=== PATIENT | male | born 1985 | race Caucasian/White ===

== ENCOUNTER 2017-04-12 07:23 | Emergency (ER) | payer OTHER ==
[2017-04-12 07:29] VITALS: BP 164/99; PULSE 88; RESP 20; TEMP 97
[2017-04-12] MEDS ORDERED: KETOROLAC 60 MG/2 ML VIAL IM STA (08:19)
[2017-04-12] MEDS ORDERED: methylPREDNISolone SOD SUCCI 125 MG/2 ML VIAL IM ONE (08:20)
--- NOTE | 2017-04-12 08:22 | ED ---
Back Pain HPI - General Chief Complaint: Back Pain/Injury Stated Complaint: back pain Time Seen by Provider: 04/12/17 08:08 Source: patient, RN notes reviewed Limitations: no limitations - History of Present Illness Initial Comments: Patient's 31-year-old male presents emergency room for low back pain. Patient states he has a history of herniated disks in his lumbar spine. Patient states he was lifting up a heavy object yesterday and felt a sharp burning pain in his lower back. Patient states the pain is radiating down his left leg. Patient denies fecal or urinary incontinence. Patient denies saddle anesthesia. Patient states he is having pain every time he stands up. Patient states he has been taking ibuprofen with no relief of symptoms. Patient states he couldn' t go into work today secondary to pain. Patient denies feeling a pop or snap when the incident happened. Patient denies any recent fall or trauma to his back. Patient denies any other injuries during incident. - Related Data Home Medications Medication Instructions Recorded Confirmed Ibuprofen [Motrin] 800 mg PO Q8H PRN 04/12/17 04/12/17 Previous Rx's Medication Instructions Recorded HYDROcodone/APAP 5-325MG [[place] 1 tab PO Q6HR PRN #12 tab 04/12/17 5-325] predniSONE 50 mg PO DAILY #5 tab 04/12/17 Allergies Allergy/AdvReac Type Severity Reaction Status Date / Time No Known Allergies Allergy Verified 04/12/17 07:58 Review of Systems ROS Statement: Those systems with pertinent positive or pertinent negative responses have been documented in the HPI. ROS Other: All systems not noted in ROS Statement are negative. Past Medical History Additional Past Medical History / Comment(s): fx of back History of Any Multi-Drug Resistant Organisms: None Reported Past Surgical History: No Surgical Hx Reported Additional Past Surgical History / Comment(s): epidural injections Past Psychological History: No Psychological Hx Reported Smoking Status: Never smoker Past Alcohol Use History: Occasional Past Drug Use History: Marijuana General Exam - General Exam Comments Initial Comments: Sitting in exam room, no acute distress. Limitations: no limitations General appearance: alert, in no apparent distress Head exam: Present: atraumatic, normocephalic, normal inspection Eye exam: Present: normal appearance ENT exam: Present: normal exam Neck exam: Present: normal inspection Respiratory exam: Absent: respiratory distress Extremities exam: Present: normal inspection Back exam: Present: normal inspection, vertebral tenderness (Lumbosacral spine) . Absent: CVA tenderness (R), CVA tenderness (L) Neurological exam: Present: alert, oriented X3, CN II-XII intact Psychiatric exam: Present: normal affect, normal mood Skin exam: Present: warm, dry, intact, normal color. Absent: rash Course Vital Signs 04/12/17 07:27 Temperature 97.0 F L Pulse Rate 88 Respiratory 20 Rate Blood Pressure 164/99 O2 Sat by Pulse 98 Oximetry Medical Decision Making - Medical Decision Making Patient is a 31-year-old male presents to the emergency room for evaluation of low back pain. X-ray showed no acute findings. Results discussed with patient. Patient initially offered pain medications and stated that he drove here. Patient given Toradol and Solu-Medrol. Patient states his symptoms have not improved. Patient's did end up showing up during the visit. Patient requested stronger pain medication. Patient was offered morphine and [place] and refused. Patient also requested an MRI. I did discuss with patient that we do not do MRIs in the emergency room and that he would need to follow-up with his primary care provider. Patient was unhappy with this information and left before given discharged instructions. - Radiology Data Radiology results: report reviewed, image reviewed Disposition Clinical Impression: Low back strain Disposition: HOME SELF-CARE Condition: Good Instructions: Acute Low Back Pain (ED) Additional Instructions: Take medications as needed. Ice on and off for 10-15 minutes at a time. Please follow up with primary care provider in 24-48 hours for reevaluation. If any new symptom arises or symptoms worsen, return to ER as soon as possible. Prescriptions: HYDROcodone/APAP 5-325MG [[place] 5-325] 1 tab PO Q6HR PRN #12 tab PRN Reason: Pain predniSONE 50 mg PO DAILY #5 tab Referrals: Raulito Lopez MD [Primary Care Provider] - 1-2 days Time of Disposition: 09:13
--- NOTE | 2017-04-12 08:53 | XR ---
Lumbosacral spine HISTORY: Low back pain 5 views of the lumbosacral spine. Correlation to MRI lumbar spine 06/20/2010 Loss of disc height is present L4-5 and L5-S1. Lumbar vertebral bodies show preserved height and alig nment. There is mild multilevel spondylosis. No spondylolysis. Lumbar vertebral bodies show preserved height and bone mineralization. IMPRESSION: Degenerative disc disease. No fracture or subluxation.
== END 2017-04-12 09:30 | disposition home or self-care (01) ==
LOC: EC 07:23
DX: S39.012A Strain of muscle, fascia and tendon of lower back, initial encounter (principal); Z87.39 Personal history of other diseases of the musculoskeletal system and connective tissue; X50.0XXA Overexertion from strenuous movement or load, initial encounter
CPT/HCPCS: 72110; 99283; 96372 ×2; J2930; J1885

== ENCOUNTER 2019-08-02 15:59 | Observation (INO) | payer OTHER, BC ==
[2019-08-02] MEDS ORDERED: NITROGLYCERIN SL TABS 0.4 MG TAB SUBLINGUAL STA (16:45)
[2019-08-02] MEDS ORDERED: ASPIRIN 81 MG PO STA (16:45)
--- NOTE | 2019-08-02 16:49 | ED ---
Chest Pain HPI <Arsenio Laughlin - Last Filed: 08/02/19 18:46> - General Source: patient Mode of arrival: ambulatory Limitations: no limitations <Kalpesh Box - Last Filed: 08/02/19 18:55> - General Chief Complaint: Chest Pain Stated Complaint: Chest Pain Time Seen by Provider: 08/02/19 16:33 - History of Present Illness Initial Comments: Patient is a 33-year-old male presenting to emergency Department with a chief complaint of chest pain. Patient reports the pain began yesterday morning and is not resolved. Patient reports the pain is intermittent in nature and is substernal. Patient denies any radiation to the arm or chin. Patient denies any shortness of breath. Patient denies dyspnea on exertion. Patient reports the pain is reproducible with palpation. Patient denies any episodes of diaphoresis, nausea or vomiting. Patient denies a headache, lightheaded, dizziness or blurry vision. Patient denies hypertension, hypercholesterolemia, prior cardiac history or family history of cardiac disease. Patient denies any abdominal or back pain. Patient denies taking medication to alleviate the symptoms. (Kalpesh Box) - Related Data Home Medications Medication Instructions Recorded Confirmed Ibuprofen [Motrin] 800 mg PO Q8H PRN 04/12/17 08/02/19 Allergies Allergy/AdvReac Type Severity Reaction Status Date / Time No Known Allergies Allergy Verified 08/02/19 16:58 Review of Systems ROS Other: All systems not noted in ROS Statement are negative. <Arsenio Laughlin - Last Filed: 08/02/19 18:46> ROS Other: All systems not noted in ROS Statement are negative. <Kalpesh Box - Last Filed: 08/02/19 18:55> ROS Statement: Those systems with pertinent positive or pertinent negative responses have been documented in the HPI. EKG Findings - EKG Comments: EKG Findings:: Normal sinus rhythm, no ST changes. Ventricular rate 72, ND interval 140, QRS duration 94, QT/QTC 388/424 <Kalpesh Box - Last Filed: 08/02/19 18:55> Past Medical History Past Medical History: No Reported History Additional Past Medical History / Comment(s): fx of back History of Any Multi-Drug Resistant Organisms: None Reported Past Surgical History: No Surgical Hx Reported Additional Past Surgical History / Comment(s): epidural injections Past Psychological History: No Psychological Hx Reported Smoking Status: Never smoker Past Alcohol Use History: Occasional Past Drug Use History: Marijuana <Kalpesh Box - Last Filed: 08/02/19 18:55> General Exam Limitations: no limitations General appearance: alert, in no apparent distress Head exam: Present: atraumatic, normocephalic, normal inspection Eye exam: Present: normal appearance, PERRL, EOMI Pupils: Present: normal accommodation ENT exam: Present: normal exam, normal oropharynx, mucous membranes moist, TM's normal bilaterally, normal external ear exam Neck exam: Present: normal inspection, full ROM Respiratory exam: Present: normal lung sounds bilaterally, chest wall tenderness (Sternal midsternal tenderness with palpation) Cardiovascular Exam: Present: regular rate, normal rhythm, normal heart sounds Extremities exam: Present: normal inspection, full ROM, normal capillary refill, other (+2 ulnar and radial pulses bilaterally.) Back exam: Present: normal inspection, full ROM Neurological exam: Present: alert, oriented X3 Psychiatric exam: Present: normal affect, normal mood Skin exam: Present: warm, intact, normal color <Kalpesh Box - Last Filed: 08/02/19 18:55> Course <Arsenio Laughlin - Last Filed: 08/02/19 18:46> Vital Signs 08/02/19 08/02/19 08/02/19 16:02 17:10 18:26 Temperature 98.4 F Pulse Rate 87 82 86 Respiratory 18 18 18 Rate Blood Pressure 147/95 163/86 128/86 O2 Sat by Pulse 100 99 97 Oximetry - Reevaluation(s) Reevaluation #1: 08/02/19 18:46 Case discussed with practitioner Michele. Chart reviewed. Case also discussed with Dr. Lopez, who will admit his patient. (Arsenio Laughlin) Chest Pain MDM - Differential Diagnosis ACS, Chest Wall Syndrome - Wells Criteria Clinical Symptoms of DVT: (0) No No Alternative Diagnosis: (0) No Immobilization of Surgery in Previous 4 Weeks: (0) No Previous DVT/PE: (0) No Hemoptysis: (0) No Malignancy: (0) No <Kalpesh Box - Last Filed: 08/02/19 18:55> - MDM Patient is a 33-year-old male presenting to the emergency department with a chief complaint of chest pain. Chest pain appears since yesterday and is intermittent in nature. Chest pain is substernal and non-radiating. Patient is a heart score of 2. On physical examination the pain appears to reproduce with palpation. There could be a possible costochondritis aspect to the pain. Chest x-ray is unremarkable. Initial troponins are negative. CBC does indicate a mild elevation in white blood count. Rest of labs are unremarkable.EKG performed show sinus rhythm with no ST changes. Patient will be admitted for observation and serial troponins. Case discussed with Dr. Laughlin. Admitting physician is Dr. Lopez. Cardiology consulted. (Kalpesh Box) Disposition <Arsenio Laughlin - Last Filed: 08/02/19 18:46> Is patient prescribed a controlled substance at d/c from ED?: No Time of Disposition: 18:55 <Kalpesh Box - Last Filed: 08/02/19 18:55> Clinical Impression: Chest pain Disposition: ADMITTED IP TO THIS HOSP Condition: Stable Instructions (If sedation given, give patient instructions): Costochondritis (ED) Additional Instructions: Patient will be admitted Referrals: Raulito Lopze MD [Primary Care Provider] - 1-2 days
--- NOTE | 2019-08-02 17:09 | XR ---
EXAMINATION TYPE: XR chest 2V DATE OF EXAM: 08/02/2019 COMPARISON: NONE HISTORY: Chest pain TECHNIQUE: Frontal and lateral views of the chest are obtained. FINDINGS: Heart and mediastinum are normal. Lungs are clear. Diaphragm is normal. Bony thorax appear s normal. IMPRESSION: Normal chest
[2019-08-02 17:10] LABS: Basophils % (A) 0 %; Eosinophils # (A) 0.3 k/uL (0-0.7); Eosinophils % (A) 2 %; HCT 42.6 % (39.0-53.0); HGB 14.7 gm/dL (13.0-17.5); Lymphocytes # (A) 2.2 k/uL (1.0-4.8); Lymphocytes % (A) 16 %; MCH 30.4 pg (25.0-35.0); MCHC 34.4 g/dL (31.0-37.0); MCV 88.4 fL (80.0-100.0); Mean Platelet Volume 6.4; Monocytes # (A) 0.7 k/uL (0-1.0); Monocytes % (A) 5 %; Neutrophils # (A) 10.6 k/uL (1.3-7.7); Neutrophils % (A) 75 %; Platelet Count 251 k/uL (150-450); RBC 4.82 m/uL (4.30-5.90); RDW 12.6 % (11.5-15.5); WBC 14.1 k/uL (3.8-10.6)
[2019-08-02 17:12] LABS: ALT 40 U/L (21-72); AST 35 U/L (17-59); African American GFR (CKD) >90 (>60 ml/min/1.73 sqM); Albumin 4.5 g/dL (3.5-5.0); Alkaline Phosphatase 75 U/L (38-126); Anion Gap 11 mmol/L; Blood Urea Nitrogen 13 mg/dL (9-20); Calcium 9.3 mg/dL (8.4-10.2); Carbon Dioxide 24 mmol/L (22-30); Chloride 103 mmol/L (98-107); Glucose 88 mg/dL (74-99); Magnesium 1.8 mg/dL (1.6-2.3); Non-African American GFR(CKD) >90 (>60 ml/min/1.73 sqM); Potassium 3.9 mmol/L (3.5-5.1); Sodium 138 mmol/L (137-145); Total Bilirubin 2.2 mg/dL (0.2-1.3); Total Protein 7.5 g/dL (6.3-8.2)
[2019-08-02 17:13] LABS: Partial Thromboplastin Time 24.3 sec (22.0-30.0); Prothrombin Time 10.6 sec (9.0-12.0)
[2019-08-02] MEDS ORDERED: NITROGLYCERIN SL TABS 0.4 MG TAB SUBLINGUAL PRN (18:44)
[2019-08-02] MEDS ORDERED: PANTOPRAZOLE 40 MG/10 ML VIAL IVP ONE (23:35)
[2019-08-02] MEDS ORDERED: LORazepam 2 MG/ML INJ IV STA (23:37)
[2019-08-03] MEDS: FAMOTIDINE 20 MG/2 ML VIAL IV SCH ×2 (02:22→11:59)
[2019-08-03 06:13] LABS: Cholesterol 154 mg/dL (<200); HDL Cholesterol 39 mg/dL (40-60); LDL Cholesterol,Calculated 99 mg/dL (0-99); Triglycerides 80 mg/dL (<150)
--- NOTE | 2019-08-03 07:54 | P.HPIM ---
History of Present Illness H&P Date: 08/03/19 Chief Complaint: Chest pressure The patient is here complaining of chest pain and epigastric type pain for the last day or so. He states it started yesterday after 2 hours of eating. He does not state that food was necessary provocative. However, there was some nausea with diaphoresis yesterday intermittently. Nitroglycerin was given last night improve his pain. However, there is no classic EKG changes or enzymatic elevations from a cardiac enzyme perspective. He is a smoker and we did have a long discussion regarding tobacco cessation. The patient was given some Ativan with Pepcid and PPI which didn't supposedly not improve his pain Review of Systems Constitutional: Denies chills, Denies fever Eyes: denies blurred vision, denies pain Ears, nose, mouth and throat: Denies headache, Denies sore throat Cardiovascular: Reports chest pain, Denies dyspnea on exertion, Denies edema, Denies shortness of breath Respiratory: Denies cough Gastrointestinal: Reports abdominal pain, Reports heartburn, Reports nausea, Denies diarrhea, Denies vomiting Musculoskeletal: Denies myalgias Past Medical History Past Medical History: No Reported History Additional Past Medical History / Comment(s): fx of back History of Any Multi-Drug Resistant Organisms: None Reported Past Surgical History: No Surgical Hx Reported Additional Past Surgical History / Comment(s): epidural injections Past Anesthesia/Blood Transfusion Reactions: No Reported Reaction Past Psychological History: No Psychological Hx Reported Smoking Status: Never smoker Past Alcohol Use History: Occasional Past Drug Use History: Marijuana Medications and Allergies Home Medications Medication Instructions Recorded Confirmed Type Ibuprofen [Motrin] 800 mg PO Q8H PRN 04/12/17 08/02/19 History Allergies Allergy/AdvReac Type Severity Reaction Status Date / Time No Known Allergies Allergy Verified 08/02/19 16:58 Physical Exam Vitals: Vital Signs Temp Pulse Pulse Resp BP BP Pulse Ox 08/03/19 07:37 98 08/03/19 07:25 98.3 F 68 16 124/75 98 08/03/19 04:00 98.1 F 76 18 113/70 94 L 08/03/19 03:15 72 16 08/02/19 23:45 70 16 08/02/19 23:17 94 18 151/89 08/02/19 19:45 98.8 F 71 18 131/80 95 08/02/19 19:17 98.4 F 79 18 131/77 97 08/02/19 18:26 86 18 128/86 97 08/02/19 17:10 82 18 163/86 99 08/02/19 16:02 98.4 F 87 18 147/95 100 Intake and Output 08/02/19 08/03/19 08/03/19 22:59 06:59 14:59 Other: Weight 136.078 kg - Constitutional General appearance: no acute distress - EENT Eyes: EOMI - Neck Neck: no lymphadenopathy - Respiratory Respiratory: bilateral: CTA - Cardiovascular Rhythm: regular Heart sounds: normal: S1, S2 Abnormal Heart Sounds: no S3 Gallop - Gastrointestinal General gastrointestinal: soft, no tenderness - Neurologic Neurologic: CNII-XII intact - Musculoskeletal Musculoskeletal: gait normal Results CBC & Chem 7: 08/02/19 16:46 08/02/19 16:46 Labs: Abnormal Lab Results - Last 24 Hours (Table) 08/02/19 08/02/19 08/03/19 Range/Units 16:46 16:46 05:24 WBC 14.1 H (3.8-10.6) k/uL Neutrophils # 10.6 H (1.3-7.7) k/uL Total Bilirubin 2.2 H (0.2-1.3) mg/dL HDL Cholesterol 39 L (40-60) mg/dL Thrombosis Risk Factor Assmnt - Choose All That Apply Any of the Below Risk Factors Present?: No Other Risk Factors: No Thrombosis Risk Factor Assessment Level: Very Low Risk Assessment and Plan (1) Epigastric abdominal pain Current Visit: Yes Status: Acute Code(s): R10.13 - EPIGASTRIC PAIN SNOMED Code(s): 05084414 (2) Chest pain Current Visit: Yes Status: Acute Code(s): R07.9 - CHEST PAIN, UNSPECIFIED SNOMED Code(s): 19805323 Plan: Again, tobacco cessation discussed at length. Rule out myocardial infarction. Probable stress testing today. If cardiac workup is negative, we will schedule for EGD and possible ultrasound of abdomen as an outpatient. Anticipate discharge in next 24 hours. Time with Patient: Greater than 30
[2019-08-03] MEDS ORDERED: MAG HYDROX/AL HYDROX/SIMETH 30 ML, HYOSCYAMINE ELIXIR 10 ML, LIDOCAINE VISCOUS 2% 10 ML PO ONE ×3 (08:42)
[2019-08-03] MEDS ORDERED: ASPIRIN 325 MG TAB PO SCH (09:00)
--- NOTE | 2019-08-03 09:57 | US ---
EXAMINATION TYPE: US gallbladder DATE OF EXAM: 08/03/2019 COMPARISON: NONE CLINICAL HISTORY: cp. Patient states having epigastric pain. EXAM MEASUREMENTS: Liver Length: 18.8 cm Gallbladder Wall: 0.2 cm CBD: 0.5 cm Right Kidney: 11.0 x 4.7 x 6.0 cm Pancreas: Appears echogenic in appearance. Liver: Slightly heterogenous and echogenic. Enlarged. Gallbladder: wnl Evidence for sonographic Rodriguez's sign: neg CBD: wnl Right Kidney: No hydronephrosis or masses seen IMPRESSION: 1. There is enlarged and heterogeneous in echogenicity. Correlate for hepatomegaly with possible hepa tic steatosis or hepatitis. 2. No evidence of cholelithiasis.
[2019-08-03 11:58] VITALS: RESP 18
[2019-08-03] MEDS: traMADol 50 MG TAB PO SCH ×3 (13:57→22:12)
--- NOTE | 2019-08-03 14:13 | P.CRDCN ---
History of Present Illness History of present illness: This is a pleasant 33-year-old male past medical history significant for former nicotine dependence quit 10-yrs ago. He denies prior history of coronary artery disease, hypertension, dyslipdiemia or diabetes mellitus. He has no family history of premature coronary artery disease. We have been asked to see him in consultation secondary to chest pain. He states it first started 2 days ago. He woke up in the morning with a discomfort in the mid-sternal region. The discomfort was described as a dull achy pain with intermittent sharp bursts. The discomfort has been persistent for 2 days with episodes of worsening at times with deep inspiration. His symptoms are not related to physical activity, exertion or oral intake. He has some associated nausea and intermittent diaphoresis. No shortness of breath, dizziness or palpitations. EKG reveals sinus mechanism with no acute ST or T wave abnormalities noted. Chest x-ray is negative for an acute cardiopulmonary process. Laboratory data reviewed, WBC 14.1, hemoglobin 14.7, platelets 251, sodium 138, potassium 3.9, creatinine 1.03, magnesium 1.8, total bilirubin 2.2, cardiac enzymes negative 3, LDL 99. Takes no daily cardiac medications. At the time of my exam: CONSTITUTIONAL: Denies fever. Denies chills. EYES: Denies blurred vision. Denies vision changes. Denies eye pain. EARS, NOSE, MOUTH & THROAT: Denies headache. Denies sore throat. Denies ear pain. CARDIOVASCULAR: Denies chest pain. Denies shortness of breath. Denies orthopnea. Denies PND. Denies palpitations. RESPIRATORY: Denies cough. GASTROINTESTINAL: Denies abdominal pain. Denies diarrhea. Denies constipation. Denies nausea. Denies vomiting. MUSCULOSKELETAL: Denies myalgias. INTEGUMENTARY: Denies pruitis. Denies rash. NEUROLOGIC: Denies numbness. Denies tingling. Denies weakness. PSYCHIATRIC: Denies anxiety. Denies depression. ENDOCRINE: Denies fatigue. Denies weight change. Denies polydipsia. Denies polyurina. GENITOURINARY: Denies burning, hematuria or urgency with micturation. HEMATOLOGIC: Denies history of anemia. Denies bleeding. Blood pressure 124/75 heart rate 68 afebrile maintaining oxygen saturation on room air GENERAL: This is a 33-year-old male in no apparent distress at the time of my examination. HEENT: Head is atraumatic, normocephalic. Pupils are equal, round. Sclerae anicteric. Conjunctivae are clear. Mucous membranes of the mouth are moist. Neck is supple. There is no jugular venous distention. No carotid bruit is heard. LUNGS: Clear to auscultation no wheezes, rales or rhonchi. Mild achy chest wall discomfort is noted on palpation and with deep breathing. HEART: Regular rate and rhythm without murmurs, rubs or gallops. S1 and S2 heard. ABDOMEN: Soft, nontender. Bowel sounds are heard. No organomegaly noted. EXTREMITIES: No evidence of peripheral edema and no calf tenderness noted. VASCULAR: Radial and dorsalis pedis pulses palpated, no evidence of clubbing. NEUROLOGIC: Patient is awake, alert and oriented x3. ASSESSMENT Chest pain, atypical for angina. Appears to be GI related. An acute coronary event has been ruled out. No EKG evidence of ischemia and negative cardiac enzymes. Leukocytosis Elevated total bilirubin Former nicotine dependence Obesity, BMI 36 PLAN An acute coronary event has been ruled out. Recommend ultrasound of the gallbladder. Symptoms likely related to underlying GI etiology. We will check an echo for any wall motion abnormalities. Thank you kindly for this consultation. Nurse Practitioner note has been reviewed, I agree with a documented findings and plan of care. Patient was seen and examined. Past Medical History Past Medical History: No Reported History Additional Past Medical History / Comment(s): fx of back History of Any Multi-Drug Resistant Organisms: None Reported Past Surgical History: No Surgical Hx Reported Additional Past Surgical History / Comment(s): epidural injections Past Anesthesia/Blood Transfusion Reactions: No Reported Reaction Past Psychological History: No Psychological Hx Reported Smoking Status: Never smoker Past Alcohol Use History: Occasional Past Drug Use History: Marijuana Medications and Allergies Home Medications Medication Instructions Recorded Confirmed Type Ibuprofen [Motrin] 800 mg PO Q8H PRN 04/12/17 08/02/19 History Allergies Allergy/AdvReac Type Severity Reaction Status Date / Time No Known Allergies Allergy Verified 08/02/19 16:58 Physical Exam Vitals: Vital Signs Temp Pulse Pulse Resp BP BP Pulse Ox 08/03/19 07:37 98 08/03/19 07:25 98.3 F 68 16 124/75 98 08/03/19 04:00 98.1 F 76 18 113/70 94 L 08/03/19 03:15 72 16 08/02/19 23:45 70 16 08/02/19 23:17 94 18 151/89 08/02/19 19:45 98.8 F 71 18 131/80 95 08/02/19 19:17 98.4 F 79 18 131/77 97 08/02/19 18:26 86 18 128/86 97 08/02/19 17:10 82 18 163/86 99 08/02/19 16:02 98.4 F 87 18 147/95 100 Intake and Output 08/02/19 08/03/19 08/03/19 22:59 06:59 14:59 Other: Weight 136.078 kg Results 08/02/19 16:46 08/02/19 16:46 Cardiac Enzymes 08/02/19 08/02/19 08/02/19 Range/Units 16:46 16:46 22:42 AST 35 (17-59) U/L Troponin I <0.012 <0.012 (0.000-0.034) ng/mL 08/03/19 Range/Units 05:24 AST (17-59) U/L Troponin I <0.012 (0.000-0.034) ng/mL Coagulation 08/02/19 Range/Units 16:46 PT 10.6 (9.0-12.0) sec APTT 24.3 (22.0-30.0) sec Lipids 08/03/19 Range/Units 05:24 Triglycerides 80 (<150) mg/dL Cholesterol 154 (<200) mg/dL HDL Cholesterol 39 L (40-60) mg/dL CBC 08/02/19 Range/Units 16:46 WBC 14.1 H (3.8-10.6) k/uL RBC 4.82 (4.30-5.90) m/uL Hgb 14.7 (13.0-17.5) gm/dL Hct 42.6 (39.0-53.0) % Plt Count 251 (150-450) k/uL Comprehensive Metabolic Panel 08/02/19 Range/Units 16:46 Sodium 138 (137-145) mmol/L Potassium 3.9 (3.5-5.1) mmol/L Chloride 103 (98-107) mmol/L Carbon Dioxide 24 (22-30) mmol/L BUN 13 (9-20) mg/dL Creatinine 1.03 (0.66-1.25) mg/dL Glucose 88 (74-99) mg/dL Calcium 9.3 (8.4-10.2) mg/dL AST 35 (17-59) U/L ALT 40 (21-72) U/L Alkaline Phosphatase 75 (38-126) U/L Total Protein 7.5 (6.3-8.2) g/dL Albumin 4.5 (3.5-5.0) g/dL Current Medications Generic Name Dose Route Start Last Admin Trade Name Freq PRN Reason Stop Dose Admin Famotidine 20 mg 08/02/19 23:45 08/03/19 02:22 Pepcid IV Not Given DAILY BONILLA Nitroglycerin 0.4 mg 08/02/19 18:44 08/02/19 23:17 Nitrostat SUBLINGUAL 0.4 mg Q5M PRN Administration Chest Pain Intake and Output 08/02/19 08/03/19 08/03/19 22:59 06:59 14:59 Other: Weight 136.078 kg 08/02/19 16:46 08/02/19 16:46
[2019-08-03 17:38] LABS: Basophils # (A) 0.1 k/uL (0-0.2); Basophils % (A) 1 %; Eosinophils # (A) 0.4 k/uL (0-0.7); Eosinophils % (A) 3 %; HCT 42.9 % (39.0-53.0); HGB 15.1 gm/dL (13.0-17.5); Lymphocytes # (A) 1.8 k/uL (1.0-4.8); Lymphocytes % (A) 16 %; MCHC 35.2 g/dL (31.0-37.0); MCV 88.1 fL (80.0-100.0); Mean Platelet Volume 5.8; Monocytes # (A) 0.6 k/uL (0-1.0); Monocytes % (A) 5 %; Neutrophils # (A) 8.6 k/uL (1.3-7.7); Neutrophils % (A) 74 %; Platelet Count 255 k/uL (150-450); RBC 4.87 m/uL (4.30-5.90); RDW 12.4 % (11.5-15.5); WBC 11.7 k/uL (3.8-10.6)
[2019-08-03 17:54] LABS: ALT 29 U/L (21-72); AST 25 U/L (17-59); African American GFR (CKD) >90 (>60 ml/min/1.73 sqM); Albumin 4.2 g/dL (3.5-5.0); Alkaline Phosphatase 67 U/L (38-126); Anion Gap 10 mmol/L; Blood Urea Nitrogen 12 mg/dL (9-20); Calcium 9.1 mg/dL (8.4-10.2); Carbon Dioxide 26 mmol/L (22-30); Chloride 103 mmol/L (98-107); Glucose 88 mg/dL (74-99); Non-African American GFR(CKD) >90 (>60 ml/min/1.73 sqM); Potassium 4.2 mmol/L (3.5-5.1); Sodium 139 mmol/L (137-145); Total Protein 7.1 g/dL (6.3-8.2)
--- NOTE | 2019-08-03 18:44 | ECHOF ---
Referral Reason: MEASUREMENTS -------- HEIGHT: 193.0 cm WEIGHT: 136.1 kg BP: 124/75 RVIDd: 4.0 cm (< 3.3) IVSd: 1.8 cm (0.6 - 1.1) LVIDd: 3.7 cm (3.9 - 5.3) LVPWd: 1.7 cm (0.6 - 1.1) IVSs: 2.3 cm LVIDs: 2.4 cm LVPWs: 1.9 cm LAESV Index (A-L): 18.91 ml/m Ao Diam: 3.4 cm (2.0 - 3.7) AV Cusp: 2.2 cm (1.5 - 2.6) LA Diam: 4.1 cm (2.7 - 3.8) MV EXCURSION: 21.910 mm (> 18.000) MV EF SLOPE: 177 mm/s (70 - 150) EPSS: 0.8 cm MV E Emil: 0.63 m/s MV DecT: 340 ms MV A Emil: 0.54 m/s MV E/A Ratio: 1.18 RAP: 5.00 mmHg RVSP: 27.66 mmHg FINDINGS -------- Sinus rhythm. This was a technically good study. The left ventricular size is normal. There is severe concentric left ventricular hypertrophy. The re is normal global left ventricular contractility. Overall left ventricular systolic function is n ormal with, an EF between 65 - 70 %. The diastolic filling pattern is normal for the age of the pat ient 5.96. The right ventricle is mildly enlarged. Normal LA size by volume 22+/-6 ml/m2. The right atrial size is normal. Interatrial and interventricular septum intact. The aortic valve is trileaflet and appears structurally normal. There is no evidence of aortic regu rgitation. There is no evidence of aortic stenosis. There is trace to mild mitral regurgitation. Mild tricuspid regurgitation present. There is no evidence of pulmonary hypertension. The right v entricular systolic pressure, as measured by Doppler, is 27.66mmHg. There is no pulmonic regurgitation present. The aortic root size is normal. The inferior vena cava is mildly dilated. There is no pericardial effusion. CONCLUSIONS -------- 1. Sinus rhythm. 2. This was a technically good study. 3. The left ventricular size is normal. 4. There is severe concentric left ventricular hypertrophy. 5. There is normal global left ventricular contractility. 6. Overall left ventricular systolic function is normal with, an EF between 65 - 70 %. 7. The diastolic filling pattern is normal for the age of the patient 5.96 8. The right ventricle is mildly enlarged. 9. Normal LA size by volume 22+/-6 ml/m2. 10. The right atrial size is normal. 11. Interatrial and interventricular septum intact. 12. The aortic valve is trileaflet and appears structurally normal. 13. There is no evidence of aortic regurgitation. 14. There is no evidence of aortic stenosis. 15. There is trace to mild mitral regurgitation. 16. Mild tricuspid regurgitation present. 17. There is no evidence of pulmonary hypertension. 18. The right ventricular systolic pressure, as measured by Doppler, is 27.66mmHg. 19. There is no pulmonic regurgitation present. 20. The aortic root size is normal. 21. The inferior vena cava is mildly dilated. 22. There is no pericardial effusion. [employer]ICLE SUPERVISOR: Angeles Gómez RDCS
--- NOTE | 2019-08-03 19:28 | NM ---
EXAMINATION TYPE: NM hepatobiliary w CCK DATE OF EXAM: 08/03/2019 COMPARISON: NONE HISTORY: TECHNIQUE: After the intravenous administration of 4.9 mCi Tc 99m Mebrofenin hepatobiliary scintigrap hy is performed. Immediate images post injection. FINDINGS: Liver shows no focal defect. There is tracer in the small bowel at 8 minutes and tracer in the gallbl adder at 22 minutes which excludes obstruction of the cystic duct and common bile duct. Tracer is mos tly cleared from the liver at 60 minutes. The post stimulation images show gallbladder ejection fraction of 95%. IMPRESSION: Normal hepatobiliary scan.
[2019-08-03 20:11] LABS: Hepatitis A Antibody IgM Non-Reactive (Non-Reactive); Hepatitis B Core IgM Non-Reactive (Non-Reactive); Hepatitis B Surface Antigen Non-Reactive (Non-Reactive); Hepatitis C IgG Antibody Non-Reactive (Non-Reactive)
--- NOTE | 2019-08-04 08:06 | P.PN ---
Subjective Progress Note Date: 08/04/19 Principal diagnosis: Epigastric pain This is a continue pressure 33-year-old white male essentially admitted for atypical type chest pain. On continuing examination, the patient was complaining more of epigastric diaphragmatic type pain. The patient has been started on Pepcid IV and seems more comfortable but eating has become significantly provocative. HIDA scan is negative. Ultrasound does not show significant pathology outside of hepatic steatosis. Surgery has now been consulted. Question need for upper GI versus EGD. Objective - Vital Signs Vital signs: Vital Signs Temp 98.2 F 08/04/19 04:00 Pulse 59 L 08/04/19 04:00 Resp 18 08/04/19 04:00 BP 122/74 08/04/19 04:00 Pulse Ox 98 08/04/19 04:00 Intake & Output 08/03/19 08/04/19 08/04/19 18:59 06:59 18:59 Other: Voiding Method Toilet Toilet # Voids 1 1 - Constitutional General appearance: Present: no acute distress, obese. Absent: average body habitus - EENT Eyes: Absent: abnormal pupil - Neck Neck: Absent: lymphadenopathy - Respiratory Respiratory: bilateral: CTA - Cardiovascular Rhythm: regular Heart sounds: normal: S1, S2 Abnormal Heart Sounds: Absent: S3 Gallop - Gastrointestinal General gastrointestinal: Present: tenderness - Integumentary Integumentary: Absent: cellulitis - Neurologic Neurologic: Present: CNII-XII intact - Labs CBC & Chem 7: 08/03/19 16:57 08/03/19 16:57 Labs: Abnormal Lab Results - Last 24 Hours (Table) 08/03/19 08/03/19 Range/Units 16:57 16:57 WBC 11.7 H (3.8-10.6) k/uL Neutrophils # 8.6 H (1.3-7.7) k/uL Total Bilirubin 2.0 H (0.2-1.3) mg/dL Assessment and Plan (1) Epigastric abdominal pain Current Visit: Yes Status: Acute Code(s): R10.13 - EPIGASTRIC PAIN SNOMED Code(s): 75320301 (2) Chest pain Current Visit: Yes Status: Acute Code(s): R07.9 - CHEST PAIN, UNSPECIFIED SNOMED Code(s): 16818711 Plan: Again, tobacco cessation discussed at length. Echocardiogram reviewed which is normal Again, surgery has been consulted question need for upper GI versus EGD. Anticipate discharge in next 24 hours.
[2019-08-04] MEDS ORDERED: PROPOFOL 10 MG/ML 20 ML VIAL IV ONE (10:22)
[2019-08-04] MEDS ORDERED: IV FLUID CONTINUATION 1,000 ML IV ONE (10:22)
--- NOTE | 2019-08-04 10:29 | P.GSCN ---
History of Present Illness Consult date: 08/03/19 Reason for Consult: Abdominal pain, nausea, indigestion History of present illness: This a 33-year-old male admitted to Dr. Lopez service. Patient has had some complaints of abdominal/chest pain. He states that the pain is worsened over the last 2 nights when he eats dinner. He describes a crampy pain with nausea. Past Medical History Past Medical History: No Reported History Additional Past Medical History / Comment(s): fx of back History of Any Multi-Drug Resistant Organisms: None Reported Past Surgical History: No Surgical Hx Reported Additional Past Surgical History / Comment(s): epidural injections Past Anesthesia/Blood Transfusion Reactions: No Reported Reaction Past Psychological History: No Psychological Hx Reported Smoking Status: Never smoker Past Alcohol Use History: Occasional Past Drug Use History: Marijuana Medications and Allergies Home Medications Medication Instructions Recorded Confirmed Type Ibuprofen [Motrin] 800 mg PO Q8H PRN 04/12/17 08/02/19 History Allergies Allergy/AdvReac Type Severity Reaction Status Date / Time No Known Allergies Allergy Verified 08/02/19 16:58 Surgical - Exam Vital Signs Temp Pulse Resp BP Pulse Ox 98.4 F 87 18 147/95 100 08/02/19 16:02 08/02/19 16:02 08/02/19 16:02 08/02/19 16:02 08/02/19 16:02 - General well developed, well nourished, no distress - Eyes PERRL - ENT normal pinna - Neck no masses - Respiratory normal expansion - Cardiovascular Rhythm: regular - Abdomen Abdomen: soft, non tender Results - Labs 08/03/19 16:57 08/03/19 16:57 Abnormal Lab Results - Last 24 Hours (Table) 08/03/19 08/03/19 Range/Units 16:57 16:57 WBC 11.7 H (3.8-10.6) k/uL Neutrophils # 8.6 H (1.3-7.7) k/uL Total Bilirubin 2.0 H (0.2-1.3) mg/dL Diabetes panel 08/03/19 Range/Units 16:57 Sodium 139 (137-145) mmol/L Potassium 4.2 (3.5-5.1) mmol/L Chloride 103 (98-107) mmol/L Carbon Dioxide 26 (22-30) mmol/L BUN 12 (9-20) mg/dL Creatinine 1.04 (0.66-1.25) mg/dL Glucose 88 (74-99) mg/dL Calcium 9.1 (8.4-10.2) mg/dL AST 25 (17-59) U/L ALT 29 (21-72) U/L Alkaline Phosphatase 67 (38-126) U/L Total Protein 7.1 (6.3-8.2) g/dL Albumin 4.2 (3.5-5.0) g/dL Calcium panel 08/03/19 Range/Units 16:57 Calcium 9.1 (8.4-10.2) mg/dL Albumin 4.2 (3.5-5.0) g/dL Pituitary panel 08/03/19 Range/Units 16:57 Sodium 139 (137-145) mmol/L Potassium 4.2 (3.5-5.1) mmol/L Chloride 103 (98-107) mmol/L Carbon Dioxide 26 (22-30) mmol/L BUN 12 (9-20) mg/dL Creatinine 1.04 (0.66-1.25) mg/dL Glucose 88 (74-99) mg/dL Calcium 9.1 (8.4-10.2) mg/dL Adrenal panel 08/03/19 Range/Units 16:57 Sodium 139 (137-145) mmol/L Potassium 4.2 (3.5-5.1) mmol/L Chloride 103 (98-107) mmol/L Carbon Dioxide 26 (22-30) mmol/L BUN 12 (9-20) mg/dL Creatinine 1.04 (0.66-1.25) mg/dL Glucose 88 (74-99) mg/dL Calcium 9.1 (8.4-10.2) mg/dL Total Bilirubin 2.0 H (0.2-1.3) mg/dL AST 25 (17-59) U/L ALT 29 (21-72) U/L Alkaline Phosphatase 67 (38-126) U/L Total Protein 7.1 (6.3-8.2) g/dL Albumin 4.2 (3.5-5.0) g/dL Assessment and Plan Assessment: Abdominal pain, nausea. Patient will be scheduled for HIDA scan to evaluate for biliary dysfunction. He'll also EGD were in the a.m.
--- NOTE | 2019-08-04 10:40 | P.OP ---
Date of Procedure: 08/04/19 Preoperative Diagnosis: Epigastric abdominal pain Postoperative Diagnosis: Mild antral gastritis Small hiatal hernia Procedure(s) Performed: EGD Anesthesia: MAC Surgeon: Krishna Sherman Pathology: other Condition: stable Disposition: PACU Description of Procedure: The patient's placed on the endoscopy table in the lateral position. He received IV sedation. The gastroscope placed oropharynx passed in the esophagus into the stomach. Scope was then placed through the pylorus. The first and second portion of the duodenum appeared normal. Scope was then brought back the antrum this. Mildly inflamed. A biopsies performed. Scope was unretroflexed and remainder stomach appeared normal. There was a small hiatal hernia. GE junction was at 47 is. The distal esophagus proximal esophagus appeared normal. The scope was then withdrawn for patient.
--- NOTE | 2019-08-04 10:41 | P.PN ---
Progress Note - Text Progress Note Date: 08/04/19 The patient's HIDA scan shows evidence of biliary hypokinesis with an elevated ejection fraction. His symptoms of postprandial pain nausea fit in with biliary hypokinesis. His EGD showed some evidence of mild gastritis and a small hiatal hernia. Patient was started on regular diet. He'll be discharged with plans for outpatient laparoscopic cholecystectomy for biliary dysfunction
[2019-08-04] MEDS: FAMOTIDINE 20 MG/2 ML VIAL IV SCH (11:09)
[2019-08-04 11:32] VITALS: BP 145/82; PULSE 52; TEMP 97.7
[2019-08-04] MEDS: traMADol 50 MG TAB PO SCH (11:53)
[2019-08-05] MEDS ORDERED: FAMOTIDINE 20 MG TAB PO SCH (09:00)
--- NOTE | 2019-09-07 13:17 | P.DS ---
Providers Date of admission: 08/02/19 18:46 Attending physician: Raulito Lopez Consults: 08/02/19 18:44 Consult Physician Urgent Consulting Provider: Guevara Yip Consult Reason/Comments: Chest pain Do you want consulting provider notified?: Yes 08/03/19 13:18 Consult Physician Routine Consulting Provider: Krishna Sherman Consult Reason/Comments: abdominal pain Do you want consulting provider notified?: Yes Primary care physician: Raulito Lopez - Discharge Diagnosis(es) (1) Epigastric abdominal pain Status: Acute (2) Chest pain Status: Acute Hospital Course: This is observation discharge summary on a 34 white male essentially admitted for chest pain. Myocardial infarction was ruled out and the patient was cleared by cardiology. However, given significant home stress it was felt that he could have acid reflux and severe hiatal hernia with gastroesophageal reflux disease. The patient ended up having endoscopy which was nominal and cleared by surgery. However, there was element of abnormal HIDA scan and the patient will be scheduled for appropriate cholecystectomy in the future. Patient Condition at Discharge: Stable Plan - Discharge Summary Discharge Rx Participant: No New Discharge Prescriptions: No Action Ibuprofen [Motrin] 800 mg PO Q8H PRN PRN Reason: Pain Discharge Medication List Ibuprofen [Motrin] 800 mg PO Q8H PRN 04/12/17 [History] Follow up Appointment(s)/Referral(s): Raulito Lopez MD [Primary Care Provider] - 1 Week () Krishna Sherman MD [STAFF PHYSICIAN] - 08/10/19 2:00 pm Patient Instructions/Handouts: Costochondritis (ED) Discharge Disposition: HOME SELF-CARE
== END 2019-08-04 13:24 | disposition home or self-care (01) ==
LOC: EC 15:59 → 1SOBS 18:46
PROVIDERS: ADMIT Family Medicine; ATTEND Family Medicine
DX: R07.89 Other chest pain (principal); K29.50 Unspecified chronic gastritis without bleeding; K44.9 Diaphragmatic hernia without obstruction or gangrene; K82.8 Other specified diseases of gallbladder; R61 Generalized hyperhidrosis; E80.7 Disorder of bilirubin metabolism, unspecified; F17.200 Nicotine dependence, unspecified, uncomplicated; Z68.36 Body mass index [BMI] 36.0-36.9, adult; E66.9 Obesity, unspecified; Z87.81 Personal history of (healed) traumatic fracture
CPT/HCPCS: 93005 ×3; 96374; 96375 ×2; 99285; 36415; 94760; 93306; 88305; 80061; 80053 ×2; 80074; 83735; 84484 ×2; 85025 ×2; 85610; 85730; 71046; 76705; 78227; 43239; G0378 ×3; A9537; J2060; J2805; J2704; C9113

== ENCOUNTER 2019-10-12 10:53 | Emergency (ER) | payer BC, OTHER ==
[2019-10-12 11:28] VITALS: BP 163/105; PULSE 88; RESP 19; TEMP 98.5
[2019-10-12] MEDS ORDERED: KETOROLAC 60 MG/2 ML VIAL IM STA (11:56)
--- NOTE | 2019-10-12 11:58 | ED ---
URI HPI - General Chief Complaint: Upper Respiratory Infection Stated Complaint: Congested, Head Pain Time Seen by Provider: 10/12/19 11:41 Source: patient Mode of arrival: ambulatory Limitations: no limitations - History of Present Illness Initial Comments: 34-year-old male with no past medical history presenting today for chief complaint of congestion, facial pain, headaches x 1 week. Patient states he has had a week of severe congestion facial pain that refers to his teeth on and off headaches that he describes as dull aching coming and going gradually without any neck pain or photophobia and nausea or vomiting fevers. Patient denies the headaches being the worst of his life and he believes he has a sinus infection. Patient states he has a lot of green mucus when he blows his nose. Patient states is a slight cough denies any chest pain shortness of breath. Patient denies abdominal pain diarrhea or any other complaints today. Remaining review of systems negative patient denies any recent antibiotic use. - Related Data Home Medications Medication Instructions Recorded Confirmed Ibuprofen [Motrin] 800 mg PO Q8H PRN 04/12/17 08/02/19 Previous Rx's Medication Instructions Recorded Amoxic-Pot Clav 875-125Mg 1 tab PO Q12HR 10 Days #20 tablet 10/12/19 [Augmentin 875-125] Allergies Allergy/AdvReac Type Severity Reaction Status Date / Time No Known Allergies Allergy Verified 08/02/19 16:58 Review of Systems ROS Statement: Those systems with pertinent positive or pertinent negative responses have been documented in the HPI. ROS Other: All systems not noted in ROS Statement are negative. Past Medical History Past Medical History: No Reported History Additional Past Medical History / Comment(s): fx of back History of Any Multi-Drug Resistant Organisms: None Reported Past Surgical History: No Surgical Hx Reported Additional Past Surgical History / Comment(s): epidural injections Past Anesthesia/Blood Transfusion Reactions: No Reported Reaction Past Psychological History: No Psychological Hx Reported Smoking Status: Never smoker Past Alcohol Use History: Occasional Past Drug Use History: Marijuana General Exam - General Exam Comments Initial Comments: General: The patient is awake and alert, in no distress, and does not appear acutely ill. Eye: +3 mm pupils are equal, round and reactive to light, extra-ocular movements are intact. No nystagmus. There is normal conjunctiva bilaterally. No signs of icterus. No photophobia Ears, nose, mouth and throat: There are moist mucous membranes and no oral lesions. Oropharynx was not erythematous there is no tonsillar enlargement exudates or lesions. Uvula midline. Tympanic membranes are not erythematous or is no effusions bulging or retraction. No tenderness to palpation of the mastoid. No anterior cervical lymphadenopathy. Rhinorrhea, clear and bilateral nares. No tripoding, no drooling. Neck: The neck is supple, there is no tenderness or JVD. No nuchal rigidity. Patient has pain to palpation of the maxillary sinuses that increases with downward head positions. Cardiovascular: There is a regular rate and rhythm. No murmur, rub or gallop is appreciated. Respiratory: Lungs are clear to auscultation, respirations are non-labored, breath sounds are equal. No wheezes, stridor, rales, or rhonchi. No retractio ns or abdominal breathing. Gastrointestinal: Soft, non-distended, non-tender abdomen without masses or organomegaly noted. There is no rebound or guarding present. Bowel sounds are unremarkable. Musculoskeletal: Normal ROM, no tenderness. Strength 5/5. Sensation intact. Radial pulses equal bilaterally 2+. Neurological: A&O x 3. CN II-XII intact, finger to nose smooth and coordinated, heel to yan, no pronator drift, with normal sensation and strength of UE and LE b/l. Gait no ataxia. Skin: Skin is warm and dry and no rashes or lesions are noted. No extremity edema Psychiatric: Cooperative Limitations: no limitations Course Vital Signs 10/12/19 11:27 Temperature 98.5 F Pulse Rate 88 Respiratory 19 Rate Blood Pressure 163/105 O2 Sat by Pulse 99 Oximetry Medical Decision Making - Medical Decision Making 34-year-old male presenting for on and off headaches sinus pressure at the for tooth pain. Patient history concerning for sinusitis. Patient will be treated with Augmentin, and discharged home with PCP f/u. Return parameters were discussed at length the patient who verbalizes understanding patient was d ischarged appearing well nontoxic. Disposition Clinical Impression: Sinusitis, Headache Disposition: HOME SELF-CARE Condition: Good Instructions (If sedation given, give patient instructions): Sinusitis (ED) Additional Instructions: Please use medication as discussed. Please follow-up with family doctor in the next 2 days. Please have BP recheck and avoid sudephed. Please return to emergency room if the symptoms increase or worsen or for any other concerns. Prescriptions: Amoxic-Pot Clav 875-125Mg [Augmentin 875-125] 1 tab PO Q12HR 10 Days #20 tablet Is patient prescribed a controlled substance at d/c from ED?: No Referrals: Raulito Lopez MD [Primary Care Provider] - 1-2 days Time of Disposition: 11:58
== END 2019-10-12 12:08 | disposition home or self-care (01) ==
LOC: EC 10:53
DX: J32.9 Chronic sinusitis, unspecified (principal)
CPT/HCPCS: 99283; 96372; J1885

== ENCOUNTER 2024-09-28 12:30 | Day surgery (SDC) | payer BC ==
[2024-09-26 14:29] VITALS: BMI 27.3
[2024-09-28] MEDS: IV FLUID CONTINUATION 1,000 ML IV ONE ×2 (12:49→14:15)
[2024-09-28 12:53] VITALS: TEMP 99
[2024-09-28] MEDS: LACTATED RINGERS 1,000 ML IV SCH (13:01)
[2024-09-28] MEDS ORDERED: LIDOCAINE 1% INJ 10MG/ML (20 ML MDV) ONE (14:16)
[2024-09-28] MEDS ORDERED: PROPOFOL 10 MG/ML 20 ML VIAL IV ONE (14:16)
--- NOTE | 2024-09-28 14:23 | P.GSHP ---
History of Present Illness H&P Date: 09/28/24 Chief Complaint: Rectal bleeding 39-year-old male here for colonoscopy. Patient has had some recent rectal bleeding. His stool was checked and was positive for blood. Patient feels some soreness at the anal region and thinks he feels a small lump on the inside. No history of previous colonoscopy. Past Medical History Past Medical History: Hypertension Additional Past Medical History / Comment(s): Hx fx of back, hypertension resolved since weight loss. History of Any Multi-Drug Resistant Organisms: None Reported Past Surgical History: No Surgical Hx Reported Additional Past Surgical History / Comment(s): Epidural injections. Past Anesthesia/Blood Transfusion Reactions: No Reported Reaction Smoking Status: Current every day smoker - Past Family History Father Family Medical History: Cancer Medications and Allergies Home Medications Medication Instructions Recorded Confirmed Type Lisdexamfetamine Dimesylate 70 mg PO DAILY 09/26/24 09/28/24 History [Vyvanse] Allergies Allergy/AdvReac Type Severity Reaction Status Date / Time No Known Allergies Allergy Verified 09/28/24 13:01 Surgical - Exam Vital Signs Temp Pulse Resp BP Pulse Ox 99.0 F 85 16 126/74 97 09/28/24 12:52 09/28/24 12:52 09/28/24 12:52 09/28/24 12:52 09/28/24 12:52 Physical exam: General: Well-developed, well-nourished HEENT: Normocephalic, sclerae nonicteric Abdomen: Nontender, nondistended Extremities: No edema Neuro: Alert and oriented Assessment and Plan (1) Rectal bleeding Narrative/Plan: Will proceed with colonoscopy at this time. Current Visit: Yes Status: Acute Code(s): K62.5 - HEMORRHAGE OF ANUS AND RECTUM SNOMED Code(s): 00729037
--- NOTE | 2024-09-28 14:49 | P.PCN ---
Date of Procedure: 09/28/24 Procedure(s) Performed: PREOPERATIVE DIAGNOSIS: Recent GI bleed POSTOPERATIVE DIAGNOSIS: Normal colonoscopy PROCEDURE: Colonoscopy, anoscopy ANESTHESIA: MAC SURGEON: Aleksandr Ocampo M.D. SPECIMENS: None ENDOSCOPIC PROCEDURE: The patient was placed on the endoscopy table in the left decubitus position. The Olympus colonoscope was inserted into the anus and passed under direct visualization to the base of the cecum. The appendiceal orifice was visualized. From that point the scope was slowly withdrawn inspecting all surfaces carefully. There were no neoplastic inflammatory or polypoid lesions throughout the cecum, ascending, transverse, descending, sigmoid and rectum. There was no visible diverticulosis noted. Retroflexion at the anus was normal. Digital rectal examination revealed a small subcutaneous spherical structure measuring about 4 to 5 mm on the right lateral position. The anoscope was then utilized. The mucosa appeared normal circumferentially. No fissure or fistula was seen. The small cystic lesion in the anal canal on the right-hand side likely represents a small anal gland cyst. The patient was taken to the recovery room in stable condition per anesthesia guidelines. RECOMMENDATIONS: Resume diet. Monitor for recurrent bleeding. Repeat colonoscopy 10 years.
[2024-09-28 14:57] VITALS: BP 118/73; PULSE 68; RESP 17
== END 2024-09-28 15:20 | disposition home or self-care (01) ==
LOC: ORWHC2ENDO 12:30
PROVIDERS: ATTEND Surgery
DX: K62.5 Hemorrhage of anus and rectum (principal); K62.89 Other specified diseases of anus and rectum; R19.5 Other fecal abnormalities; F90.9 Attention-deficit hyperactivity disorder, unspecified type; F17.290 Nicotine dependence, other tobacco product, uncomplicated; Z79.899 Other long term (current) drug therapy
CPT/HCPCS: 45378; J2003; J2704; 46600

== ENCOUNTER → 2024-10-04 | Outpatient (CLI) | payer BC ==
--- NOTE | 2024-10-04 11:54 | CT ---
EXAMINATION TYPE: CT pelvis w con DATE OF EXAM: 10/04/2024 9:40 AM COMPARISON: None CLINICAL INDICATION: Male, 39 years old with history of R80.9 PROTEINURIA; Rectal pain x 6 months TECHNIQUE: Axial CT pelvis w con;Sagittal and coronal reformats were created on a separate workstati on. Contrast used:100 mL of Isovue 300 with IV Contrast, (none if empty) Oral contrast used: with Oral Contrast (none if empty) CT DLP: 1159 mGycm, Automated exposure control for dose reduction was used. FINDINGS: BLADDER: No evidence for wall thickening or mass given limitations of exam. REPRODUCTIVE: Unremarkable. ABDOMEN & PELVIS STOMACH AND BOWEL: No evidence of bowel obstruction. The rectum is grossly unremarkable. No perianal fluid collection or abscess. The rectum mclaughlin are within normal limits. The appendix is normal. PERITONEUM/RETROPERITONEUM: No evidence of pneumoperitoneum or free fluid. VASCULATURE: No evidence of aortic aneurysm. MUSCULOSKELETAL: No acute osseous abnormalities LYMPH NODES: No gross evidence for lymphadenopathy. SOFT TISSUE/ABDOMINAL WALL: Unremarkable IMPRESSION: Grossly unremarkable rectum. No evidence for perianal abscess or fistula on CT imaging. No acute proc ess. [facility], , 10/04/2024 11:52 AM
== END | disposition home or self-care (01) ==
LOC: RADCTMAIN 07:54
PROVIDERS: ATTEND Surgery
DX: K62.89 Other specified diseases of anus and rectum (principal)
CPT/HCPCS: 72193; Q9967